=== PATIENT | male | born 1975 | race Caucasian/White ===

== ENCOUNTER 2016-10-14 06:22 | Day surgery (SDC) | payer MEDICAID ==
[2016-10-11 08:48] VITALS: BMI 32.1
[~2016-10-14 06:22] MED LIST: DEXAMETHASONE SOD PHOSPHATE 10 MG/ML 1 ML VIAL IV ONE; DEXAMETHASONE SOD PHOSPHATE 4 MG/ML 1 ML VIAL IV ONE; FAMOTIDINE 20 MG/2 ML VIAL IV ONE; HYDROmorphone 1 MG/ML 1 ML SYRINGE IVP PRN; MIDAZOLAM 2 MG/2 ML VIAL IV PRN; ONDANSETRON 4 MG/2 ML VIAL IVP ONE; Pre Op ABX Message 1 EACH MISC MISCELLANE ONE
[2016-10-14] MEDS: OXYMETAZOLINE 0.05% NASL SPRAY 15 ML NASAL ONE ×5 (06:45→07:05)
[2016-10-14] MEDS: LACTATED RINGERS 1,000 ML IV SCH ×2 (07:03→07:31)
[2016-10-14] MEDS ORDERED: DEXAMETHASONE SOD PHOS (MDV) 100 MG/10 ML VIAL ONE (07:33)
[2016-10-14] MEDS ORDERED: MIDAZOLAM 2 MG/2 ML VIAL ONE (07:33)
[2016-10-14] MEDS ORDERED: ceFAZolin 1,000 MG VIAL ONE (07:33)
[2016-10-14] MEDS ORDERED: PROPOFOL 10 MG/ML 20 ML VIAL IV ONE (07:33)
[2016-10-14] MEDS ORDERED: LIDOCAINE 1% INJ 10MG/ML (20 ML MDV) ONE (07:33)
[2016-10-14] MEDS ORDERED: fentaNYL (PF) 50 MCG/ML 2 ML AMP ONE (07:33)
[2016-10-14] MEDS ORDERED: SUCCINYLCHOLINE CHLORIDE 100 MG/5 ML SYR IV ONE (07:33)
[2016-10-14] MEDS ORDERED: SODIUM CHLORIDE 0.9% 100 ML BAG ONE (07:33)
[2016-10-14] MEDS ORDERED: SODIUM CHLORIDE 0.9% 50 ML with ceFAZolin 2,000 MG IV ONE ×2 (07:52)
--- NOTE | 2016-10-14 08:39 | P.OP ---
Date of Procedure: 10/14/16 Preoperative Diagnosis: Family planning Postoperative Diagnosis: Same Procedure(s) Performed: Bilateral vasectomy Anesthesia: ASHLEY Surgeon: Edgar Sneed Estimated Blood Loss (ml): 0 IV fluids (ml): 800 Pathology: none sent Condition: stable Disposition: PACU Indications for Procedure: He is a 40-year-old male with no children, though he does have 2 stepchildren. He and his desire permanent sterilization, and he has thus elected to undergo a vasectomy. Operative Findings: Normal anatomy, uncomplicated vasectomy. Description of Procedure: The patient was taken in the operating room and placed in the supine position. The external genitalia was prepped and draped sterilely. The vas clamp was used to make a puncture incision in the midline of the anterior scrotum. A hemostat was used to spread subcutaneous tissues, down to the left vas deferens. The vasectomy loop instrument was used to grasp the left vas deferens , which was pulled out through the incision. Deferential vessels were incised using the Bovie electrocautery, thus isolating the vas. The vas was then ligated proximally and distally using a 3-0 nylon suture. A portion of the vas was then excised. A needle tip Bovie was used to cauterize the lumen of the proximal and distal ends of the vas. The deferential vessels were then closed over the distal end of the vas using a 3-0 chromic suture, thus the 2 ends of the vas. The vas was then returned to the left hemiscrotum. An identical procedure was then performed on the right. Hemostasis was excellent. The skin was closed using a single 3-0 chromic suture in simple interrupted fashion. A sterile gauze dressing was applied over the incision, followed by a scrotal support. The patient tolerated the procedure well. He will be taken to the recovery room once Dr. Almonte completes his sinus surgery.
[2016-10-14] MEDS ORDERED: LIDOCAINE 1%-EPI 1:100,000 20 ML VIAL SQ ONE ×2 (08:40)
[2016-10-14] MEDS ORDERED: BUPIVACAINE (PF) 0.25% 30 ML VIAL SQ ONE (08:40)
[2016-10-14] MEDS ORDERED: BACITRACIN 500 UNIT/GM OINT 28.4 GM TUBE TOPICAL ONE (08:53)
[2016-10-14 09:43] VITALS: TEMP 97
[2016-10-14] MEDS ORDERED: HYDROcodone/APAP 5-325MG 1 EACH TAB PO ONE (10:56)
[2016-10-14 11:53] VITALS: BP 163/82; PULSE 79; RESP 18
--- NOTE | 2016-10-15 07:24 | OP ---
DATE OF SERVICE: 10/14/2016 SURGEON: ALEC PAULINO DO [employer] FOUNDER [employer] CEO: PREOPERATIVE DIAGNOSES: Deviated nasal septum, bilateral hypertrophy of nasal inferior turbinates with obstruction, cystic mass right scalp measuring 2.1 cm, a cystic mass left scalp measuring 2.2 cm, cystic mass left postauricular region measuring 2.4 cm. POSTOPERATIVE DIAGNOSES: Deviated nasal septum, bilateral hypertrophy of nasal inferior turbinates with obstruction, cystic mass right scalp measuring 2.1 cm, a cystic mass left scalp measuring 2.2 cm, cystic mass left postauricular region measuring 2.4 cm. OPERATION: 1. Septoplasty. 2. Bilateral submucosal resection of the inferior turbinates with outfracture and compression. 3. Excision of 3 scalp lesions as above, with complex closure. ANESTHESIA: General. ESTIMATED BLOOD LOSS: Minimum, less than 15 mL. SPECIMENS REMOVED: Three scalp lesions, redundant septal cartilage and inferior turbinate submucosal tissue. COMPLICATIONS: None. CONSENT: All risks, benefits, alternative therapies and complications were discussed in detail. Consent was obtained and all questions were answered. INDICATIONS: This patient is a 40-year-old white male who has had persistent nasal obstruction and has a severely deviated nasal septum with an S-shaped curvature from right to the left anterior to posterior large obstructive inferior turbinates are also problematic and he failed nasal steroid use. His nasal obstruction is persistent and problematic and this has been going on for many years and wished to have this structural defect corrected. He also has 3 masses of the scalp that are problematic. The patient has male pattern baldness and shaves his head and then he tells me that these lumps or quite obvious. They are also irritating and when he shaves his head they get in the way. They appear to be growing and changing and he has had infections. He has pus coming from those regions. OPERATIVE FINDINGS: Patient has a severe deviated nasal septum with an S-shaped curvature with large obstructive inferior turbinates and 3 cystic masses of the scalp as previously described. OPERATIVE PROCEDURE: This patient was taken to the operating room and placed in the supine position. A general inhalation anesthetic was administered to the patient by mask and subsequently intubated with a cuffed endotracheal tube by the Department of Anesthesia with a functioning IV line in place. The patient was monitored throughout the entire case by the Department of Anesthesia. The scalp was sterilely prepped and draped in the usual fashion. We identified 3 lesions; a 2.1 cm right cystic mass scalp lesion, a 2.1 cm left cystic mass scalp lesion and a 2.4 cm left postauricular scalp lesion. Incisions were made over these areas after appropriate anesthetization utilizing lidocaine 1% with epinephrine 1:100,000. Five minutes were allowed to wait for full vasoconstrictive effects to take place. After the incision was made, dissection was carried out through the skin through the follicular layer to the galea of the scalp, and the masses were identified and each one was removed completely. All visible mass was removed. After we removed these 3 scalp masses, we did extensive undermining in all directions. We removed redundant tissue and we then closed the deep subcutaneous scalp tissue with 4-0 Monocryl. We closed the deep subcutaneous tissue and the skin area with 4-0 Monocryl and the skin was closed with a 5-0 nylon and Prolene suture in a running nonlocking fashion. Excellent approximation was obtained. Attention was then paid to the nose, with the septum and inferior turbinates injected with lidocaine 1% with epinephrine 1:100,000. Approximately 10 minutes were allowed to wait for full vasoconstrictive effects to take place. We evaluated the septum and there was a severe anterior deformity. The septum was deviated to the right anteriorly and to the left posteriorly. After an appropriate amount of time for vasoconstriction, a caudal incision was made over the caudal portion of the left septum down to the mucoperichondrium. A mucoperichondrial flap was developed to the extent of visualization on the left and a crossover incision was made and a full transfixion incision was accomplished. The septum was exposed and the anterior portion was extremely deviated and deformed. We made crosshatching incisions through the anterior septum to allow the septum to fall back into the midline. After the septum was straightened, we closed the incision with 4-0 rapid Vicryl and a quilting stitch was used to reapproximate the septal flaps. The septum was suture fixated to the vomerine groove for stabilization. At the end of the case we utilized St splints for compression and stabilization. We entered the inferior turbinates with a microdebrider utilizing a 2 mm Xomed blade. We removed bone and submucosal elements with the use of a microdebrider and the inferior turbinates were then outfractured and compressed with a Williamson nasal elevator. Excellent results were obtained. Again St splints were inserted and suture fixated with a 2-0 nylon. The patient tolerated this well. We will see the patient back in the office on October 18 at 1:45 for removal of the intranasal splints. Patient has to contact me if any problems should arise in the interim.
--- NOTE | 2016-10-20 06:46 | CDI ---
Dear Dr. Almonte, Per your Operative report, complex repair of the three scalp wounds is documented citing extensive undermining and removal of redundant tissue. Please provide the lengths ofall three complex repairs. Please provide this informaiton on an addendum to the Operative report. Thank you for your time, Kristin Pearson,[facility] Outpatient Voip Network Engineer [email or web address]
--- NOTE | 2016-10-29 21:27 | OP ---
DATE OF SERVICE: 10/04/2016 SURGEON: ALEC PAULINO DO OPERATIVE NOTE ADDENDUM This patient had 3 masses removed from the scalp. He had a right scalp cystic mass measuring 2.1 x 2 cm, another cystic mass in the left scalp measuring 2.2 x 2 cm, and another cystic mass in the left postauricular region measuring 2.4 x 2 cm. All these lesions were excised with a 15 blade after anesthetization. We ( ) 3 lesions were closed in a complex fashion with extensive undermining, prepping the skin edge, removal of redundant skin, etc. We closed this also in a multilayered approach, closing the galea, the deep scalp, the mid scalp and the skin all separately. The patient tolerated this well. The sizes are as above.
== END 2016-10-14 12:25 | disposition home or self-care (01) ==
LOC: OR 06:22
PROVIDERS: ATTEND Otolaryngology
DX: Z30.2 Encounter for sterilization (principal); L72.11 Pilar cyst; J34.2 Deviated nasal septum; Z87.891 Personal history of nicotine dependence; J34.3 Hypertrophy of nasal turbinates; K21.9 Gastro-esophageal reflux disease without esophagitis; Z79.899 Other long term (current) drug therapy
CPT/HCPCS: 55250; 30520; 30140; 88304; 88300; 11426; 13121; J2250; J1100 ×2; J2405; J0690 ×2; J2001; J3010; J0330; J2704

== ENCOUNTER 2025-03-13 08:37 | Emergency (ER) | payer MEDICAID ==
[2025-03-13 08:42] VITALS: BP 173/104; PULSE 63; RESP 20; TEMP 98.4
[2025-03-13] MEDS: SODIUM CHLORIDE 0.9% 1,000 ML IV SCH (09:02)
[2025-03-13] MEDS: ONDANSETRON 4 MG/2 ML VIAL IVP STA (09:04)
[2025-03-13] MEDS: KETOROLAC 15 MG/ML 1 ML VIAL IVP STA (09:05)
[2025-03-13 09:11] LABS: Basophils # (A) 0.07 10*3/uL (0.00-0.10); Basophils % (A) 0.6 %; Eosinophils # (A) 0.02 10*3/uL (0.04-0.35); Eosinophils % (A) 0.2 %; HCT 44.4 % (39.6-50.0); HGB 15.1 g/dL (13.0-17.0); Lymphocytes # (A) 1.40 10*3/uL (0.90-5.00); Lymphocytes % (A) 11.5 %; MCH 28.7 pg (27.0-32.0); MCHC 34.0 g/dL (32.0-37.0); MCV 84.4 fL (80.0-97.0); Monocytes # (A) 0.79 10*3/uL (0.20-1.00); Monocytes % (A) 6.5 %; Neutrophils # (A) 9.88 10*3/uL (1.80-7.70); Neutrophils % (A) 81.0 %; Platelet Count 202 10*3/uL (140-440); RBC 5.26 10*6/uL (4.40-5.60); RDW 13.5 % (11.5-14.5); WBC 12.19 10*3/uL (4.50-10.00)
[2025-03-13 09:22] LABS: ALT 44 U/L (4-49); AST 36 U/L (17-59); African American GFR (CKD) 69 (>60 ml/min/1.73 sqM); Albumin 4.6 g/dL (3.5-5.0); Alkaline Phosphatase 73 U/L (38-126); Anion Gap 10 mmol/L; Blood Urea Nitrogen 15 mg/dL (9-20); Calcium 9.3 mg/dL (8.4-10.2); Carbon Dioxide 21 mmol/L (22-30); Chloride 103 mmol/L (98-107); Glucose 109 mg/dL (74-99); Non-African American GFR(CKD) 59 (>60 ml/min/1.73 sqM); Potassium 5.1 mmol/L (3.5-5.1); Sodium 134 mmol/L (137-145); Total Protein 7.2 g/dL (6.3-8.2)
--- NOTE | 2025-03-13 09:38 | CT ---
EXAMINATION TYPE: CT abdomen pelvis wo con DATE OF EXAM: 03/13/2025 9:22 AM COMPARISON: None CLINICAL INDICATION: Male, 49 years old with history of flank pain; lt sided flank pain TECHNIQUE: Axial CT abdomen pelvis wo con;Sagittal and coronal reformats were created on a separate workstation. Contrast used: mL of , (none if empty) Oral contrast used: without Oral Contrast (none if empty) CT DLP: 925.1 mGycm, Automated exposure control for dose reduction was used. FINDINGS: LOWER CHEST: Unremarkable ABDOMEN LIVER: Unremarkable GALLBLADDER AND BILE DUCTS: Unremarkable. PANCREAS: Unremarkable. SPLEEN: Unremarkable. ADRENAL GLANDS: Unremarkable. KIDNEYS AND URETERS: Mild left hydronephrosis secondary obstructing 4 mm calculus at the ureterovesic ular junction. Bilateral nonobstructing 2 to 3 mm calculi. No right hydronephrosis. PELVIS BLADDER: No evidence for wall thickening or mass given limitations of exam. REPRODUCTIVE: Unremarkable. ABDOMEN & PELVIS STOMACH AND BOWEL: No evidence of bowel obstruction. PERITONEUM/RETROPERITONEUM: No evidence of pneumoperitoneum or free fluid. VASCULATURE: No evidence of aortic aneurysm. MUSCULOSKELETAL: No acute osseous abnormalities. Mild disc degeneration changes are present throughou t the thoracolumbar spine. LYMPH NODES: No gross evidence for lymphadenopathy. SOFT TISSUE/ABDOMINAL WALL: Fat-containing umbilical hernia. Fat-containing inguinal hernias. IMPRESSION: 1. Mild left hydronephrosis secondary obstructing 4 mm calculus at the ureterovesicular junction. N o right hydronephrosis. Additional bilateral nonobstructing renal calculi. 2. Bilateral fat-containing inguinal hernias. 3. Fat-containing umbilical hernia. [facility], , 03/13/2025 9:36 AM
--- NOTE | 2025-03-13 09:45 | ED ---
Abdominal Pain HPI - General Chief Complaint: Abdominal Pain Stated Complaint: back pain/NV Time Seen by Provider: 03/13/25 08:43 Source: patient, RN notes reviewed Mode of arrival: ambulatory Limitations: no limitations - History of Present Illness Initial Comments: 49-year-old male presents emergency department chief complaint of left flank pain. Patient states that it started yesterday worsened. He attempted to go to work today but the pain was too intense. He has had intermittent nausea states he has a history of kidney stones has not had any recent imaging. Denies fevers or chills no chest pain or shortness of breath no dysuria - Related Data Home Medications Medication Instructions Recorded Confirmed Multivitamin [Men's Multi-Vitamin] 1 tab PO DAILY 10/11/16 10/14/16 Omeprazole [PriLOSEC] 20 mg PO AC-BRKFST 10/11/16 10/14/16 Previous Rx's Medication Instructions Recorded Amoxicillin/Potassium Clav 1 each PO Q12HR #20 tab 10/14/16 [Augmentin 875-125 Tablet] Hydrocodone/Acetaminophen [[place] 1 - 2 each PO Q4HR PRN #40 tab 10/14/16 5-325] Ketorolac [Toradol] 10 mg PO Q8HR #15 tab 03/13/25 Ondansetron Odt [Zofran Odt] 4 mg PO Q8HR PRN #10 tab 03/13/25 Tamsulosin [Flomax] 0.4 mg PO DAILY #7 cap 03/13/25 Allergies Allergy/AdvReac Type Severity Reaction Status Date / Time No Known Allergies Allergy Verified 03/13/25 08:42 Review of Systems ROS Statement: Those systems with pertinent positive or pertinent negative responses have been documented in the HPI. ROS Other: All systems not noted in ROS Statement are negative. Past Medical History Past Medical History: GERD/Reflux Additional Past Medical History / Comment(s): Kidney stones. History of Any Multi-Drug Resistant Organisms: None Reported Additional Past Surgical History / Comment(s): Jaw surgery, EGD. Nasal, Vesectomy Past Anesthesia/Blood Transfusion Reactions: No Reported Reaction Past Psychological History: No Psychological Hx Reported Smoking Status: Never smoker Past Alcohol Use History: Occasional Past Drug Use History: None Reported - Past Family History Mother Family Medical History: No Reported History General Exam Limitations: no limitations General appearance: alert, in no apparent distress Head exam: Present: atraumatic, normocephalic, normal inspection Neck exam: Present: normal inspection, full ROM. Absent: tenderness, meningismus, lymphadenopathy Respiratory exam: Present: normal lung sounds bilaterally. Absent: respiratory distress, wheezes, rales, rhonchi, stridor Cardiovascular Exam: Present: regular rate, normal rhythm, normal heart sounds. Absent: systolic murmur, diastolic murmur, rubs, gallop, clicks GI/Abdominal exam: Present: soft, normal bowel sounds. Absent: distended, tenderness, guarding, rebound, rigid Back exam: Absent: CVA tenderness (R), CVA tenderness (L) Neurological exam: Present: alert Course Vital Signs 03/13/25 08:40 Temperature 98.4 F Pulse Rate 63 Respiratory 20 Rate Blood Pressure 173/104 O2 Sat by Pulse 99 Oximetry Medical Decision Making - Medical Decision Making Was pt. sent in by a medical professional or institution (, PA, CHROME TANNING DRUM OPERATOR, urgent care, hospital, or [facility]...) When possible be specific @ -No Did you speak to anyone other than the patient for history (EMS, parent, family, police, friend...)? What history was obtained from this source @ -No Did you review nursing and triage notes (agree or disagree)? Why? @ -I reviewed and agree with nursing and triage notes Were old charts reviewed (outside hosp., previous admission, EMS record, old EKG, old radiological studies, urgent care reports/EKG's, [facility] records)? Report findings @ -No old charts were reviewed Differential Diagnosis (chest pain, altered mental status, abdominal pain women, abdominal pain men, vaginal bleeding, weakness, fever, dyspnea, syncope, headache, dizziness, GI bleed, back pain, seizure, CVA, palpatations, mental health, musculoskeletal)? @-Differential Abdominal Pain Men: Appendicitis, cholecystitis, diverticulosis, ischemic bowel, pancreatitis, hepatitis, UTI, gastroenteritis, AAA, incarcerated hernia, bowel obstruction, constipation, inflammatory bowel, hepatitis, peptic ulcer disease, splenic infarction, perforated viscus, testicular torsion, this is not meant to be an all-inclusive list EKG interpreted by me (3pts min.). @ -None X-rays interpreted by me (1pt min.). @ -None done CT interpreted by me (1pt min.). @ -CT pelvis showed evidence of 4 mm ureteral calculus U/S interpreted by me (1pt. min.). @ -None done What testing was considered but not performed or refused? (CT, X-rays, U/S, labs)? Why? @ -None What meds were considered but not given or refused? Why? @ -None Did you discuss the management of the patient with other professionals (professionals i.e. DrChloe, PA, CHROME TANNING DRUM OPERATOR, lab, RT, psych nurse, social services analyst, dynamics ax consultant, teacher, k 9 police officer, machine adjuster leader case trim)? Give summary @ -No Was smoking cessation discussed for >3mins.? @ -No Was critical care preformed (if so, how long)? @ -No Were there social determinants of health that impacted care today? How? (Homelessness, low income, unemployed, alcoholism, drug addiction, tr ansportation, low edu. Level, literacy, decrease access to med. care, custodial, rehab)? @ -No Was there de-escalation of care discussed even if they declined (Discuss DNR or withdrawal of care, Hospice)? DNR status @ -No What co-morbidities impacted this encounter? (DM, HTN, Smoking, COPD, CAD, Cancer, CVA, ARF, Chemo, Hep., AIDS, mental health diagnosis, sleep apnea, morbid obesity)? @ -None Was patient admitted / discharged? Hospital course, mention meds given and route, prescriptions, significant lab abnormalities, going to OR and other pertinent info. @ -Discharge patient improved after Toradol Zofran and IV fluids. Patient has a 4 mm renal calculus. Patient discharged in stable condition Flomax follow-up with urology. Undiagnosed new problem with uncertain prognosis? @ -No Drug Therapy requiring intensive monitoring for toxicity (Heparin, Nitro, Insulin, Cardizem)? @ -No Were any procedures done? @ -No Diagnosis/symptom? @ -Left ureteral calculus Acute, or Chronic, or Acute on Chronic? @ -Acute Uncomplicated (without systemic symptoms) or Complicated (systemic symptoms)? @ -complicated Side effects of treatment? @ -No Exacerbation, Progression, or Severe Exacerbation? @ -No Poses a threat to life or bodily function? How? (Chest pain, [place], [place], pneumonia, PE, COPD, DKA, ARF, appy, cholecystitis, CVA, Diverticulitis, Homicidal, Suicidal, threat to staff... and all critical care pts) @ -No - Lab Data Result diagrams: 03/13/25 09:06 03/13/25 09:06 Lab Results 03/13/25 03/13/25 Range/Units 09:06 09:06 WBC 12.19 H (4.50-10.00) 10*3/uL RBC 5.26 (4.40-5.60) 10*6/uL Hgb 15.1 (13.0-17.0) g/dL Hct 44.4 (39.6-50.0) % MCV 84.4 (80.0-97.0) fL MCH 28.7 (27.0-32.0) pg MCHC 34.0 (32.0-37.0) g/dL Plt Count 202 (140-440) 10*3/uL MPV 12.0 (9.5-12.2) fL Immature Gran % (Auto) 0.2 % Neutrophils % 81.0 % Lymphocytes % 11.5 % Monocytes % 6.5 % Eosinophils % 0.2 % Basophils % 0.6 % Immature Gran # 0.03 (0.00-0.04) 10*3/uL Neutrophils # 9.88 H (1.80-7.70) 10*3/uL Lymphocytes # 1.40 (0.90-5.00) 10*3/uL Monocytes # 0.79 (0.20-1.00) 10*3/uL Eosinophils # 0.02 L (0.04-0.35) 10*3/uL Basophils # 0.07 (0.00-0.10) 10*3/uL Sodium 134 L (137-145) mmol/L Potassium 5.1 (3.5-5.1) mmol/L Chloride 103 (98-107) mmol/L Carbon Dioxide 21 L (22-30) mmol/L Anion Gap 10 mmol/L BUN 15 (9-20) mg/dL Creatinine 1.37 H (0.66-1.25) mg/dL Est GFR (CKD-EPI)AfAm 69 (>60 ml/min/1.73 sqM) Est GFR (CKD-EPI)NonAf 59 (>60 ml/min/1.73 sqM) Glucose 109 H (74-99) mg/dL Calcium 9.3 (8.4-10.2) mg/dL Total Bilirubin 1.0 (0.2-1.3) mg/dL AST 36 (17-59) U/L ALT 44 (4-49) U/L Alkaline Phosphatase 73 (38-126) U/L Total Protein 7.2 (6.3-8.2) g/dL Albumin 4.6 (3.5-5.0) g/dL Disposition Clinical Impression: Ureteral calculus, left Disposition: HOME SELF-CARE Condition: Stable Instructions (If sedation given, give patient instructions): Kidney Stones (ED) Additional Instructions: Please return to the Emergency Department if symptoms worsen or any other concerns. Prescriptions: Tamsulosin [Flomax] 0.4 mg PO DAILY #7 cap Ketorolac [Toradol] 10 mg PO Q8HR #15 tab Ondansetron Odt [Zofran Odt] 4 mg PO Q8HR PRN #10 tab PRN Reason: Nausea Is patient prescribed a controlled substance at d/c from ED?: No Referrals: None,Stated [Primary Care Provider] - 1-2 days Jake Castaneda MD [STAFF PHYSICIAN] - 1-2 days Time of Disposition: 11:07
[2025-03-13 11:17] LABS: Bacteria,Urine Rare /hpf; Bilirubin,Urine Negative (Negative); Blood,Urine Large (Negative); Color,Urine Colorless; Glucose,Urine (UA) Negative (Negative); Ketones,Urine Negative (Negative); Leukocyte Esterase,Urine Negative (Negative); Mucus,Urine Rare /hpf; Nitrite,Urine Negative (Negative); PH, Urine 5.0 (5.0-8.0); Protein,Urine Negative (Negative); RBC,Urine >182 /hpf (0-5); Specific Gravity,Urine 1.009 (1.001-1.035); Urobilinogen,Urine <2.0 mg/dL (<2.0); WBC,Urine 6 /hpf (0-5)
[2025-03-13] MEDS: TAMSULOSIN 0.4 MG CAP.ER.24H PO STA (11:27)
[2025-03-13] MEDS: ACET/COD 300 MG/30 MG STARTER PACK 6 TAB BTL PO STA (11:28)
== END 2025-03-13 11:30 | disposition home or self-care (01) ==
LOC: EC 08:37
DX: N13.2 Hydronephrosis with renal and ureteral calculous obstruction (principal)
CPT/HCPCS: 36415; 80053; 85025; 81001; 74176; 99284; 96374; 96375; 96361; J2405; J1885